=== PATIENT | female | born 1940 | race Caucasian/White ===

== ENCOUNTER 2020-01-29 19:13 | Emergency (ER) | payer MEDICARE, SELFPAY ==
--- NOTE | ~2020-01-29 | CT_ITS ---
EXAMINATION: CT cervical spine wo con DATE: 01/29/2020 19:52 INDICATION: Status post fall. Neck pain. TECHNIQUE: Computed tomography (CT) of the cervical spine was performed without intravenous contrast. The dose-length product was 156 mGy-cm. Automated exposure control and iterative reconstruction tech nique were employed. COMPARISON: None FINDINGS: No acute fracture, subluxation or dislocation. Mild degenerative changes are present C4-5, C5-6 and C6-7. Odontoid process within normal limits. Lung apices are normal. No acute fracture, subl uxation or dislocation. There is multilevel facet and uncinate hypertrophy. No paraspinal soft tissue abnormality. Thyroid gland is unremarkable. No evidence for perched facet. IMPRESSION: 1. No acute abnormality of the cervical spine. 2: Mild-moderate cervical spondylosis. Reviewed, dictated and finalized at location A.
--- NOTE | ~2020-01-29 | CT_ITS ---
EXAMINATION: CT BRAIN W/O DATE: 01/29/2020 19:52 INDICATION: Status post fall. Headache. Trauma to the for head. TECHNIQUE: Computed tomography (CT) of the head was performed without intravenous contrast. The dose- length product was 605.33 mGy-cm. No The mA was adjusted according to patient size. Iterative reconst ruction technique was employed. COMPARISON: No prior studies for comparison. FINDINGS: Normal brain parenchymal volume for age. Normal monae-white differentiation. No acute intrac ranial hemorrhage, infarction, mass or mass effect. No ventriculomegaly or midline shift. Midline sagittal images demonstrate a normal corpus callosum, c raniovertebral junction and sella turcica. Basilar cisterns are patent. There is extensive mucosal thickening of the maxillary, ethmoid and left sphenoid sinus with mucoperi osteal reaction, consistent with chronic sinusitis. Mastoids are pneumatized. No depressed skull frac tures. IMPRESSION: 1. No acute intracranial abnormality. 2: Moderate chronic sinusitis. Reviewed, dictated and finalized at location A.
[2020-01-29 19:20] VITALS: BP 164/79; PULSE 93; RESP 17; TEMP 36.6; O2SAT 100
--- NOTE | 2020-01-29 20:35 | ED.FALL ---
HPI - Fall General Chief Complaint: Fall Stated Complaint: fell - head injury Time Seen by Provider: 01/29/20 20:27 Source: patient Mode of arrival: ambulatory Limitations: no limitations History of Present Illness HPI Narrative: This patient is 79 year old female who presents for evaluation of headache and neck pain s/p fall. Patient states she was walking when she stumbled and fell. She fell and hit her head on the grass. She has pain to posterior head and fore head. She denies dizziness, nausea, vomiting or fever. she also denies focal weakness, numbness or tingling. She takes aspirin 81 mg . Related Data Allergies Allergy/AdvReac Type Severity Reaction Status Date / Time levofloxacin Allergy Mild vomit Verified 01/29/20 20:26 acetaminophen Allergy Unknown Dizziness Unverified 01/29/20 20:26 hydrocodone Allergy Unknown Nausea and Unverified 01/29/20 20:26 Vomiting NSAIDS (Non-Steroidal AdvReac Severe HIVES Verified 01/29/20 20:26 Anti-Inflamma Review of Systems Review of Systems: All systems reviewed & are unremarkable except as noted in HPI and below Constitutional: Constitutional: Denies chills and Denies fever(s) Cardiovascular: Cardiovascular: Denies chest pain Gastrointestinal: Gastrointestinal: Denies abdominal pain Musculoskeletal: Musculoskeletal: Denies myalgias Neurologic: Denies vertigo, Denies dizziness, Reports headache(s), Denies focal weakness and Denies numbness PMF Past Medical History Medical History (Updated 01/30/20 @ 00:00 by Lianet Bland) Hypertension Surgical History Surgical History (Updated 01/29/20 @ 20:36 by Oxana Leo MD) H/O mastectomy H/O: hysterectomy Social History Social History Gender identity (if verbalized by the patient): Female Exam Const: General: alert Orientation/consciousness: patient oriented x3 HENMT: Head: normocephalic and atraumatic Face and sinus: face symmetric Throat: posterior oropharynx normal Eyes: Pupils: Equal, round and reactive pupils present EOM: EOMs intact bilaterally Resp: Effort & Inspection: normal respiratory effort Skin: General skin exam: normal color Neuro: General: patient oriented x3, moves all extremities and CN's II-XI intact bilaterally Extrem: General: normal to inspection Course Reevaluation(s) Reevaluation #1: I Discussed with patient CT results. She reports she has history of chronic sinusitis. I discussed treatment with tylenol and muscle relaxer. She will follow up with PCP. Date: 01/29/20 Time: 20:41 Vital Signs Vital signs: Vital Signs Temperature 97.9 F 01/29/20 19:20 Pulse Rate 93 01/29/20 19:20 Respiratory Rate 17 01/29/20 19:20 Blood Pressure 164/79 H 01/29/20 19:20 Pulse Oximetry 100 01/29/20 19:20 Temperature 97.9 F 01/29/20 19:20 Pulse Rate 87 01/29/20 21:03 Respiratory Rate 20 01/29/20 21:03 Blood Pressure 165/96 H 01/29/20 21:03 Pulse Oximetry 97 01/29/20 21:03 MDM - Fall Imaging Data Radiologist's impression: ITS Impressions Head CT 01/29/20 19:59 IMPRESSION: 1. No acute intracranial abnormality. 2: Moderate chronic sinusitis. Cervical Spine CT 01/29/20 20:02 IMPRESSION: 1. No acute abnormality of the cervical spine. 2: Mild-moderate cervical spondylosis. Discharge Plan Discharge Clinical Impression: CHI (closed head injury), Acute cervical myofascial strain Patient Disposition: Home, Self-Care Condition: Stable Instructions: Cervical Strain (ED), Head Injury (ED) Additional Instructions: Try using ice pain or heating pad to reduce your pain. Follow up with your primary care physician if your pain does not improve. Prescriptions: New cyclobenzaprine 5 mg tablet 5 mg PO TID PRN (Reason: muscle spasm) Qty: 10 RF: 0 Follow-up/Referrals: Italo Medina MD [Physician] - PHYSICIAN,STONEWORK TRACER [Primary Care Provider] - Discharge Date/Time: 01/29/20 21:18
[2020-01-29] MEDS: ACETAMINOPHEN 500 MG TABLET 1000 MG PO (20:58)
[2020-01-29] MEDS: CYCLOBENZAPRINE HCL 5 MG TABLET PO (20:58)
[2020-01-29 21:03] VITALS: BP 165/96; PULSE 87; RESP 20; O2SAT 97
== END 2020-01-29 21:18 | disposition home or self-care (01) ==
LOC: ANHED 21:06
PROVIDERS: Emergency Provider General Practice
DX: S09.90XA Unspecified injury of head, initial encounter (principal); S16.1XXA Strain of muscle, fascia and tendon at neck level, initial encounter; I10 Essential (primary) hypertension; Z90.10 Acquired absence of unspecified breast and nipple; J32.9 Chronic sinusitis, unspecified; M47.812 Spondylosis without myelopathy or radiculopathy, cervical region; Z79.82 Long term (current) use of aspirin; W01.0XXA Fall on same level from slipping, tripping and stumbling without subsequent striking against object, initial encounter
CPT/HCPCS: 70450; 72125; 99284; A9270; L0140

== ENCOUNTER 2021-07-30 10:48 | Observation (INO) | payer MEDICARE, SELFPAY ==
[2021-07-30] VITALS (12 sets, daily range): BP systolic 134–172; BP diastolic 66–128; PULSE 62–76; RESP 14–18; TEMP 36.3–36.7; O2SAT 96–100; BMI 29.3
--- NOTE | ~2021-07-30 | CT_ITS ---
EXAMINATION: CT brain wo con DATE: 07/30/2021 11:41 INDICATION: Vertigo TECHNIQUE: Computed tomography (CT) of the head was performed without intravenous contrast. The dose- length product was 605.33 mGy-cm. Automated exposure control and iterative reconstruction technique w ere employed. COMPARISON: CT dated 01/29/2020 FINDINGS: Brain parenchymal volume is normal for age. No acute intracranial hemorrhage, infarction, m ass or mass effect. No ventriculomegaly or midline shift. Basilar cisterns are patent. There are scat tered mild periventricular and subcortical white matter changes, most likely related to small vessel ischemic disease (microangiopathy). There is pansinusitis with mucoperiosteal reaction, consistent wi th chronic sinus disease. Mastoids are pneumatized. No depressed skull fractures. No ventriculomegaly or midline shift. Basilar cisterns are patent. IMPRESSION: 1. No acute intracranial abnormality. 2: Chronic sinusitis. Reviewed, dictated and finalized at location A. [employer]SEM[employer] K[employer]
--- NOTE | ~2021-07-30 | XR_ITS ---
EXAMINATION: XR chest 1V 07/30/2021 11:43 INDICATION: Dizziness and nausea PROCEDURE: 2 view chest COMPARISON: 01/13/2014 FINDINGS: The lungs are clear. There are surgical changes consistent with left axillary node dissecti on. The cardiomediastinal silhouette is within normal limits. There are no pleural effusions. There is no pneumothorax suspected. IMPRESSION: 1: NO ACUTE CARDIOPULMONARY DISEASE. Reviewed, dictated and finalized at location A. ROOM INTERN
--- NOTE | ~2021-07-30 | MR_ITS ---
EXAMINATION: MR brain/brain stem wo/w con DATE: 07/30/2021 17:56 INDICATION: Vertigo. TECHNIQUE: Magnetic resonance imaging (MRI) of the brain and brainstem was performed without and with 15 mL MultiHance intravenous contrast. Sequences included sagittal and axial T1-weighted FSE, axial diffusion-weighted FS EPI, axial T2*-weighted GRE, axial T2-weighted FLAIR Propeller, and axial T2-we ighted Propeller. Postcontrast sequences included axial and coronal T1-weighted FSE. Apparent diffusi on coefficient (ADC) maps were created. COMPARISON: Head CT 07/30/2021 FINDINGS: There are scattered areas of nonspecific increased T2-weighted signal intensity in the cere bral white matter and edilia. There is no intracranial hemorrhage, acute infarction, or abnormal intrac ranial mass lesion. The ventricles are normal in size. There is extensive mucosal thickening in the p aranasal sinuses with thickening and sclerosis of the sinus verde by CT, consistent with chronic sinu sitis. There are likely changes of ocular lens replacement surgeries. The mastoid air cells are shaila l. IMPRESSION: 1. Moderate nonspecific cerebral white matter disease and pontine disease, which likely represents ch ronic small vessel ischemic disease. 2. Chronic sinusitis. Reviewed, dictated and finalized at location A. R WOOD CUTTER IMPRESSION: 1. Moderate nonspecific cerebral white matter disease and pontine disease, whic h likely represents chronic small vessel ischemic disease. 2. Chronic sinusitis.
--- NOTE | 2021-07-30 11:29 | ECG_ITS ---
Measurements Intervals [place] Rate: 60 P: IA: 0 QRS: -10 QRSD: 83 T: -9 QT: 447 QTc: 450 Interpretive Statements SINUS OR ECTOPIC ATRIAL RHYTHM WITH SINUS ARRHYTHMIA VOLTAGE CRITERIA FOR LVH BORDERLINE ST-T WAVE ABNORMALITY- DIFFUSE LEADS BASELINE ARTIFACT- AVR, AVF, V4 BORDERLINE ECG Electronically Signed On 07-30-2021 12:18:43 LINUX UNIX ADMINISTRATOR by Sean Donald D.O.
[2021-07-30 12:04] LABS: Basophils Percent Auto 0.5 % (0.2-1.2); Eosinophils Absolute Auto 0.1 K/mm3 (0-0.3); Eosinophils Percent Auto 1.7 % (0-4.4); Hematocrit 41.8 % (37.0-47.0); Immature Granulocyte Absolute 0.03 K/mm3 (0.00-0.031); Immature Granulocyte Percent A 0.4 % (0-0.5); Lymphocytes Absolute Auto 1.28 K/mm3 (0.9-3.2); Lymphocytes Percent Auto 15.6 % (18.3-44.2); Mean Corpuscular HGB Conc 33.5 g/dl (32-36); Mean Corpuscular Hemoglobin 30.8 pg (26-34); Mean Corpuscular Volume 92.1 fl (80-100); Mean Platelet Volume 9.8 fl (7.4-10.4); Monocytes Absolute Auto 0.4 K/mm3 (0.1-0.6); Monocytes Percent Auto 5.4 % (2.6-8.5); Neutrophils Absolute Auto 6.3 K/mm3 (1.3-6.7); Neutrophils Percent Auto 76.4 % (45.5-73.1); Platelet Count Result 147 k/mm3 (150-375); Red Blood Count 4.54 M/mm3 (4.2-5.4); Red Cell Distribution Width 13.9 % (11.5-14.5); White Blood Count 8.2 K/mm3 (4.5-10.0)
[2021-07-30] MEDS: diazePAM (*CRX) 5 MG TABLET PO (12:05)
[2021-07-30] MEDS: MECLIZINE HCL 25 MG TABLET PO ×3 (12:06→23:59)
[2021-07-30] MEDS: ONDANSETRON INJ 4 MG/2 ML VIAL 8 MG IV PUSH (12:06)
[2021-07-30 12:14] LABS: Add Urine Microscopic? YES; Appearance Urine Clear (Clear); Bacteria Urine Trace /hpf; Bilirubin Urine Negative (Negative); Blood Urine Negative (Negative); Color Urine Yellow (Yellow); Glucose Urine UA Negative (Negative); Ketones Urine Negative (Negative); Leukocyte Esterase Ur Negative LEU/UL (Negative); Mucus Urine Rare /lpf; Nitrate Urine Positive (Negative); Protein Urine Negative (Negative); RBC Urine 0-2 /hpf (0-2); Specific Grav Ur 1.015 (1.001-1.035); Squamous Epithelial Cell Urine Rare /hpf (Few); Urobilinogen Urine Negative mg/dL (<2.0); WBC Urine 0-3 /hpf
[2021-07-30 12:18] LABS: Prothrombin Time 12.8 Seconds (11.1-14.7)
[2021-07-30 12:19] LABS: Partial Thromboplastin Time 29.1 SECONDS (22.3-36.8)
[2021-07-30 12:27] LABS: Alanine Aminotransferase 19 U/L (4-35); Albumin Level 4.1 g/dL (3.5-5.1); Alkaline Phosphatase 60 U/L (38-126); Anion Gap 8 mmol/L (8-16); Aspartate Amino Transferase 24 U/L (14-36); Bilirubin,Total 0.7 mg/dL (0.2-1.3); Blood Urea Nitrogen 12 mg/dL (7-17); Carbon Dioxide 24 mmol/L (22-30); Chloride 104 mmol/L (98-107); Estimated CRCL calculation 64 ml/min; Estimated Glomerular Filt Rate > 60; Glucose 123 mg/dL (65-110); Potassium 3.2 mmol/L (3.4-5.0); Sodium 136 mmol/L (137-145)
--- NOTE | 2021-07-30 12:36 | ED.DIZZY ---
HPI - Dizziness General Chief Complaint: Dizziness Stated Complaint: dizzy Time Seen by Provider: 07/30/21 10:56 Source: patient and EMS Mode of arrival: EMS Limitations: no limitations History of Present Illness HPI Narrative: Patient is 81 years old white female, lives alone, came to the emergency room by ambulance because of dizziness. Patient was trying to get out of bed this morning, suddenly everything was spinning, associated with severe nausea, patient could not move. Patient denies focal numbness or weakness. Patient had similar symptoms 2 years ago but today is worse. Discharge Patient did not take her medication this morning. After being laying down in bed for a while in the emergency room, started having left chest tightness. Patient stopped taking her aspirin 2 months ago. Patient denies any fever, chills, shortness of breath, headache, abdominal pain. Related Data Allergies Allergy/AdvReac Type Severity Reaction Status Date / Time levofloxacin Allergy Mild vomit Verified 01/29/20 20:26 acetaminophen Allergy Unknown Dizziness Unverified 01/29/20 20:26 hydrocodone Allergy Unknown Nausea and Unverified 01/29/20 20:26 Vomiting NSAIDS (Non-Steroidal AdvReac Severe HIVES Verified 01/29/20 20:26 Anti-Inflamma Review of Systems Review of Systems: CONSTITUTIONAL: Denies fever, chills, or sweats. EYES: Denies visual changes, redness, or discharge. ENT: Denies rhinorrhea, congestion, sore throat, or otalgia. CARDIOVASCULAR: Denies chest pain, palpitations, or edema. RESPIRATORY: Denies cough or dyspnea. GASTROINTESTINAL: Denies abdominal pain, nausea, vomiting, or diarrhea. GENITOURINARY: Denies dysuria or hematuria. SKIN: Denies rash or itching. MUSCULOSKELETAL: Denies back pain, joint pain, or myalgia. NEUROLOGIC: Denies headache, numbness, or weakness. PSYCHIATRIC: Denies anxiety or depression. [facility] Past Medical History Medical History Hypertension Surgical History Surgical History H/O mastectomy H/O: hysterectomy Social History Social History Gender identity (if verbalized by the patient): Female Exam Narrative: General appearance: Well-developed, well-nourished, looks ill, laying in bed, unable to move because still feeling dizzy, patient son is at the bedside Skin: Normal color Head: Normocephalic, nontraumatic Eyes: Clear conjunctiva ENT: Oropharynx normal, ears normal, nose normal Neck: Supple, nontender Chest and respiratory: Airway patent, no respiratory distress, no accessory muscle use Heart: Regular rate/rhythm Abdomen: Soft, nontender, no organomegaly, quiet bowel sounds Vascular: Normal peripheral pulses, normal capillary refill. Musculoskeletal: Normal range of motion, nontender back Neurologic: Alert and oriented ?3, [employer] is normal as tested, no gross motor deficit Course Course Emergency Course: Unchanged. Patient still nauseated with dizzy feeling, did not get better on Valium, Zofran and Antivert Vital Signs Vital signs: Vital Signs Temperature 36.6 C 07/30/21 10:53 Pulse Rate 67 07/30/21 10:53 Respiratory Rate 18 07/30/21 10:53 Blood Pressure 158/73 H 07/30/21 10:53 Pulse Oximetry 100 07/30/21 10:53 Temperature 36.4 C L 07/30/21 14:30 Pulse Rate 66 07/30/21 15:33 Respiratory Rate 14 07/30/21 15:33 Blood Pressure 142/77 H 07/30/21 15:33 Pulse Oximetry 99 07/30/21 15:33 MDM - Dizziness Lab Data Result diagrams: 07/30/21 11:56 07/30/21 11:56 Labs: Lab Results 07/30/21
[2021-07-30 12:38] LABS: Troponin I < 0.012 ng/mL (0.000-0.034)
--- NOTE | 2021-07-30 12:44 | PC.NURSE ---
pt reports dizziness has slightly improved when moving head
--- NOTE | 2021-07-30 16:23 | ADMGEN ---
This patient, Vanessa Guy, was admitted to [facility] Surg Room 311-01. Patient/family oriented to hospital policies and general routines including ID bracelet, bed and alarms, visiting hours, pain management, procedures, bathroom and other care routines, personal items, smoking policy, room service/diet, and visiting hours. Information on how to activate the Rapid Response Team has been discussed. Patient/Family are encouraged to report perceived risks to care and to ask questions if they do not understand what they are told or what they should do.
--- NOTE | 2021-07-30 16:45 | PM.IMHP ---
H&P: HPI History of Present Illness Date/Time: Patient was placed observation status for expected length of stay less than 23 hours for management, will plan to re-evaluate tomorrow for improvement. 07/30/21 16:45 Chief Complaint: Vertigo Narrative: Ms. Guy is a 81-year-old female who presented emergency room with complaints of vertigo. Patient states that she got out of bed approximately 9:00 a.m. this morning and when she went to stand up the room began spinning around her. Patient states she has had episodes of vertigo in the past approximately 2-3 years ago, but not quite this bad. Patient states she was extremely nauseated, but had no vomiting. Patient denies any recent falls or trauma to her head. Patient denies any facial droop, slurring his speech, numbness, or tingling. Patient denies any weakness, numbness, or tingling of extremities. Patient states she has a known history of hypertension, depression, and breast cancer status post mastectomy. Patient denies any chest pain, lightheadedness, shortness of breath, orthopnea, PND, palpitations, syncope, or near syncopal episodes. Upon evaluation in emergency room patient continued to complain of vertigo after receiving Valium, Zofran, and meclizine. Patient states that she is unable to tolerate sitting or standing because the room was spinning around her. Review of Systems Review of Systems: A 12 point review of systems was completed patient all pertinent positive and negative per HPI the remainder are unremarkable. [facility] Past Medical History Medical History (Updated 07/30/21 @ 16:55 by Myesha Sharp APRN) Breast cancer Hypertension Surgical History Surgical History (Updated 07/30/21 @ 16:51 by Myesha Sharp APRN) H/O mastectomy Left mastectomy History of cataract removal with insertion of prosthetic lens History of partial hysterectomy Social History Social History Smoking status: Never smoker Alcohol intake: never Gender identity (if verbalized by the patient): Female Spiritual care concerns: No Meds Home Medications and Allergies Home Medications Medication Instructions Recorded Confirmed Type cyclobenzaprine 5 mg PO TID PRN #10 tablet 01/29/20 Rx aspirin [Adult Aspirin] 81 mg PO DAILY 07/30/21 07/30/21 History escitalopram oxalate 10 mg PO DAILY 07/30/21 07/30/21 History fluticasone propionate 1 spray INTRANASAL BID 07/30/21 07/30/21 History hydrochlorothiazide 12.5 mg PO DAILY 07/30/21 07/30/21 History metoprolol tartrate 25 mg PO BID 07/30/21 07/30/21 History omega-3 fatty acids [Fish Oil] 500 mg PO DAILY 07/30/21 07/30/21 History Allergies Allergy/AdvReac Type Severity Reaction Status Date / Time levofloxacin Allergy Mild vomit Verified 07/30/21 16:56 acetaminophen Allergy Unknown Dizziness Verified 07/30/21 16:56 hydrocodone Allergy Unknown Nausea and Verified 07/30/21 16:56 Vomiting NSAIDS (Non-Steroidal AdvReac Severe HIVES Verified 07/30/21 16:56 Anti-Inflamma Vital Signs Vital Signs - 24 hr 07/30/21 10:53 07/30/21 11:41 07/30/21 11:42 Temperature 36.6 C Pulse Rate 67 69 72 Respiratory Rate 18 Blood Pressure 158/73 H 158/73 H 172/128 H Pulse Oximetry 100 07/30/21 12:17 07/30/21 13:19 07/30/21 14:30 Temperature 36.6 C 36.3 C L 36.4 C L Pulse Rate 62 73 68 Respiratory Rate 16 16 16 Blood Pressure 153/77 H 137/85 134/72 Pulse Oximetry 96 97 07/30/21 15:33 07/30/21 16:18 Temperature 36.4 C L Pulse Rate 66 68 Respiratory Rate 14 18 Blood Pressure 142/77 H 147/66 H Pulse Oximetry 99 100 Exam Narrative: Constitutional: Patient is well-nourished in no acute distress. Patient is alert oriented x3 HEENT: Moist mucous membranes. No scleral icterus. No lymphadenopathy. No nystagmus noted Neck: No carotid bruits noted no JVD noted Lungs: Lung sounds are clear to auscultation bilaterally. No accessory muscle use. No rhon
[2021-07-30] MEDS: POTASSIUM CHLORIDE 20 MEQ PACKET (FOR LIQUID) 40 MEQ PO (18:47)
[2021-07-30] MEDS: METOPROLOL TARTRATE 25 MG TABLET PO (20:31)
[2021-07-30] MEDS: FLUTICASONE PROPIONATE 0.05% NA SPR 16 GM BTL (*BKC) 1 SPRAY NASAL (20:32)
[2021-07-31] VITALS (9 sets, daily range): BP systolic 136–154; BP diastolic 61–86; PULSE 60–77; RESP 14–18; TEMP 35.8–37.1; O2SAT 94–98
[2021-07-31] MEDS: MECLIZINE HCL 25 MG TABLET PO ×2 (05:06→11:46)
[2021-07-31] MEDS: FLUTICASONE PROPIONATE 0.05% NA SPR 16 GM BTL (*BKC) 1 SPRAY NASAL (08:36)
[2021-07-31] MEDS: ENOXAPARIN 40 MG/0.4 ML SYRINGE SUB-Q (08:36)
[2021-07-31] MEDS: METOPROLOL TARTRATE 25 MG TABLET PO (08:36)
[2021-07-31] MEDS: ASPIRIN 81 MG CHEWABLE TABLET PO (08:37)
[2021-07-31] MEDS: ESCITALOPRAM OXALATE 10 MG TABLET PO (08:37)
[2021-07-31] MEDS: hydroCHLOROthiazide 12.5 MG CAPSULE PO (08:37)
[2021-07-31] MEDS: OMEGA 3 POLYUNSAT FATTY ACIDS 1 GM CAP PO (10:17)
--- NOTE | 2021-07-31 12:48 | WPDNEURCNPN ---
Assessment and Plan Additional Plan vertigo with negative MRI of the brain nonfocal neurological examination at this particular time can be discharged with Antivert and followed in the office Consult date: 07/31/21 HPI: Vanessa Guy is a 81 year old femaleAdmitted through the emergency room placed on observation status for expected length of stay [id number] for management as per the information available she got out of bed approximately 9:00 a.m. in the morning when she stood up the room began spinning around her and she had an episode of vertigo she has had the same episode about 2 to 3 years ago but not quite this bad she was nauseated though she did not throw up she gave no history of recent fall trauma to the head and she gave no history of any other associated neurological deficit such as facial droop slurred speech numbness and tingling weakness of upper and lower extremities though she does have history of hypertension, depression, and carcinoma of the breast for which she has undergone mastectomy on initial evaluation in the emergency room she complained of vertigo received Zofran meclizine and Valium, she is not a smoker not a drinker and takes only aspirin 81 mg daily with cyclobenzaprine 5 mg 3 times a day p.r.n. E site a low prime 10 mg daily so thiazide 12.5 mg daily metoprolol 25 mg b.i.d. and initial vital signs were stable so as the CBC and electrolytes were with potassium 3.2 sodium 136 otherwise normal hepatic enzymes normal she was admitted to the hospital for observation only with a diagnosis of vertigo, radiological investigation up until now include the MRI which cerebral white matter disease in pontine disease representing chronic small vessel ischemic disease and chronic sinusitis, negative chest x-ray and moderate cervical spondylosis on CT scan of the cervical spine Review of Systems Review of Systems: All systems reviewed & are unremarkable except as noted in HPI and below PMFSH Past Medical History Medical History Breast cancer Hypertension Surgical History Surgical History H/O mastectomy Left mastectomy History of cataract removal with insertion of prosthetic lens History of partial hysterectomy Social History Social History Smoking status: Never smoker Alcohol intake: never Gender identity (if verbalized by the patient): Female Spiritual care concerns: No Meds Home Medications and Allergies Home Medications Medication Instructions Recorded Confirmed Type cyclobenzaprine 5 mg PO TID PRN #10 tablet 01/29/20 07/30/21 Rx aspirin [Adult Aspirin] 81 mg PO DAILY 07/30/21 07/30/21 History escitalopram oxalate 10 mg PO DAILY 07/30/21 07/30/21 History fluticasone propionate 1 spray INTRANASAL BID 07/30/21 07/30/21 History hydrochlorothiazide 12.5 mg PO DAILY 07/30/21 07/30/21 History metoprolol tartrate 25 mg PO BID 07/30/21 07/30/21 History omega-3 fatty acids [Fish Oil] 500 mg PO DAILY 07/30/21 07/30/21 History Allergies Allergy/AdvReac Type Severity Reaction Status Date / Time levofloxacin Allergy Mild vomit Verified 07/30/21 16:56 acetaminophen Allergy Unknown Dizziness Verified 07/30/21 16:56 hydrocodone Allergy Unknown Nausea and Verified 07/30/21 16:56 Vomiting NSAIDS (Non-Steroidal AdvReac Severe HIVES Verified 07/30/21 16:56 Anti-Inflamma Vital Signs Vital Signs - 24 hr 07/30/21 13:19 07/30/21 14:30 07/30/21 15:33 Temperature 36.3 C L 36.4 C L Pulse Rate 73 68 66 Respiratory Rate 16 16 14 Blood Pressure 137/85 134/72 142/77 H Pulse Oximetry 97 99 07/30/21 16:18 07/30/21 18:45 07/30/21 22:27 Temperature 36.4 C L 36.6 C Pulse Rate 68 73 73 Respiratory Rate 18 18 Blood Pressure 147/66 H 156/90 H Pulse Oximetry 100 99 07/30/21 22:29 07/30/21 22:30 07/31/21 00:09 Temperature 36.7 C 36.7 C 37.1 C Pulse
--- NOTE | 2021-07-31 13:01 | PM.DS ---
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 placed patient on meclizine routinely and have p.r.n. 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 (2) Hypertension: Code(s): I10 - Essential (primary) hypertension Status: Acute Assessment and Plan: Will resume patient's home medications and adjust accordingly for optimal blood pressure control. (3) Hypokalemia: Code(s): E87.6 - Hypokalemia Status: Acute Assessment and Plan: Will give patient oral supplementation of potassium and continue to monitor potassium levels. DS: Summary Hospital Course Reason for hospitalization: Vertigo/dizziness Hospital Course: Patient is a 81-year-old female with a past medical history of breast cancer, diabetes mellitus type 2, and hypertension. Patient presented to the emergency due to complaints of vertigo. Patient was unable to get out of bed yesterday morning at 9:00 a.m.. Reportedly she was unable to stand up without the room spinning around her. She has had episodes of vertigo in the past, but not this bad. Patient reports that she is extremely nauseated, Nova episodes of emesis. Patient denies recent falls or trauma to her head. Patient denies any facial droop, slurring of the speech numbness or tingling. She denies any chest pain or shortness of breath. In the emergency room she did receive Valium, Zofran and meclizine. Patient reports that she was able to talk right sitting up in the dizziness was mildly improved. She was admitted under observation for hospitalist services. Neurology was consulted for further evaluation after MRI read moderate nonspecific cerebral white matter disease and pontine disease, most likely represents chronic small vessel ischemic disease. He suggested starting the patient on Plavix and continue her aspirin as well as meclizine and follow up within 6-8 weeks. Discussed with the patient for follow-up with her primary care physician and physical therapy. All questions answered at the time of discharge. Status at Discharge Cognitive/behavioral status at discharge: Alert and oriented x4 Functional status at discharge: uses cane/walker Overall status at discharge: patient is back to baseline Time Spent with Patient Time attestation: Total time spent providing and/or coordinating discharge services: Time spent: Less than 30 minutes Exam Narrative: Constitutional: Patient is well-nourished in no acute distress. Patient is alert oriented x3 HEENT: Moist mucous membranes. No scleral icterus. No lymphadenopathy. No nystagmus noted Neck: No carotid bruits noted no JVD noted Lungs: Lung sounds are clear to auscultation bilaterally. No accessory muscle use. No rhonchi, rales, or wheezes noted. Cardiovascular: Apical pulse is regular rate and rhythm. S1-S2 noted, no S3 or S4 noted. No gallops, murmurs, or rubs noted. Abdomen: Soft, round, and nontender. No palpable masses. Extremities: No edema. Nontender. Skin: No rashes or lesions. Warm and dry. Skin is intact. Neurological: No focal neurological deficits. Cranial nerves II-XII grossly intact. Psychiatric: Cooperative, appropriate mood, and affect Discharge Plan Discharge Attending physician on discharge: Santos Manning Consulting providers: Maicol Buenrostro Discharging Clinician: Lianet Burdick Patient Disposition: Home, Self-Care Activity: no preference Diet: as tolerated
== END 2021-07-31 16:50 | disposition home or self-care (01) ==
LOC: ANHED 15:03 → ANH3MEDSUR 07-31 11:34
PROVIDERS: Admitting Provider Internal Medicine; Emergency Provider Emergency Medicine; PCP Family Medicine; Visit Provider Nurse Practitioner Family
DX: R42 Dizziness and giddiness (principal); G93.89 Other specified disorders of brain; R07.9 Chest pain, unspecified; I10 Essential (primary) hypertension; E87.6 Hypokalemia; E11.9 Type 2 diabetes mellitus without complications; R11.0 Nausea; Z85.3 Personal history of malignant neoplasm of breast; Z90.12 Acquired absence of left breast and nipple; Z79.82 Long term (current) use of aspirin; Z79.899 Other long term (current) drug therapy
CPT/HCPCS: 36415; 70450; 70553; 71045; 80053; 81001; 84484; 85025; 85610; 85730; 93005; 96372; 96374; 97161; 99285; A9270; A9577; G0378; J1650; J2405

== ENCOUNTER 2021-09-20 08:30 | Outpatient (RCR) | payer MEDICARE, SELFPAY ==
--- NOTE | 2021-08-15 13:49 | PTOPEVAL ---
PHYSICAL THERAPY EVALUATION AND PLAN OF CARE 08-15-21 Thank you for referring Vanessa Guy to [facility] for the diagnosis of vertigo/vestibular rehab.? She is scheduled to be seen for therapy? 0-2 x/week for 5 weeks, depending upon the severity of her symptoms. Please review, sign, date and return this plan of care CHELSI. I agree with and certify that the following plan of care is medically necessary. Referring Physician Date Attending Provider: Dr. Jayy Davison Document 08/15/21 12:30 BRANDY (Rec: 08/15/21 13:48 BRANDY [id number]) Past Medical History Source of Past Medical History Recalled from Previous Visit, Confirmed with Patient/Family Neurological History Hx Neurological Disorders No Significant History Cardiovascular History Hx Hypertension Yes: meds Respiratory History Hx Respiratory Disorders No Significant History Gastrointestinal History Hx Gastrointestinal Disorders No Significant History Genitourinary History Hx Urinary Tract Infection Yes Musculoskeletal History Hx Other Musculoskeletal Disorders Yes: intermittent neck pain; Hematological History Hx Hematological Disorders No Significant History Endocrine History Hx Endocrine Disorders No Significant History HEENT History Hx Cataracts Yes: B cataract surgery; use reading glasses only Hx Sinus Problems Yes: seasonal allergies-- Flonase PRN Hx Other HEENT Disorders Yes: surg 2009- cleaned out sinus';to have polpy surg-not scheduled yet Integumentary History Hx Skin Disorders No Significant History Reproductive History Hx Other Reproductive Disorders Yes: L breast mastectomy, no radiation, no chemo; Psychosocial History Hx Anxiety Yes Pain History History of Any Previous or Ongoing No Significant History Instance of Pain Anesthesia History Hx Anesthesia Reactions No Significant History Evaluation Information Problem Diagnosis vertigo/ vestibular therapy Onset Jul Subjective Information hospitalized 2 days, due to Query Text:As Reported By Patient/ dizziness Family Prior Level of Function Activity Level (Last 3 Months) Activity of Daily Living Ability Independent Indoor/Home Mobility Independent Community Mobility Independent Stairs Ability Independent Functional Cognition (Planning, Shopping Independent , Taking Medications) Cooking Yes Cleaning Yes Laundry Yes Shopping Yes Driving Yes Home Setting H
--- NOTE | 2021-09-07 11:56 | PCPTNOTE ---
Patient called & cancelled scheduled appointment this date due to not feeling well.
--- NOTE | 2021-09-20 09:06 | PTOPEVAL ---
PHYSICAL THERAPY DISCHARGE 09-20-21 Refer to the clinical summary below, for her status today, compared to the initial evaluation. The goals were achieved and she will be discharged from PT services at this time. Thank you for referring Vanessa Guy to [facility] for vestibular therapy/rehab.? Please review, sign, date and return this plan of care CHELSI. I agree with and certify that the following plan of care is medically necessary. Referring Physician Date Attending Provider: Dr. Jayy Davison Subjective Information Vanessa reports: feel better; Query Text:As Reported By Patient/ had one dizzy spell in the Family past week- 3 days ago, when got up too fast from sitting to standing; once stood up, went away, did not last; doing all the exercises at home that you gave me, they are getting easier; able to stand with eyes closed for 2-3 minutes, set the timer when did it; no longer taking meclazine; have watery eyes and sinus congestion; take claritin for allergies; to see ENT next week; no problems with watching great grand son or doing vacuuming; ready to be finished with therapy Dizziness Handicap Inventory Standardized Test Scores (Number 0-100) 4 Vestibular Testing Comments supine > sit and sit> stand transfer no s/s; 360' turn to R and L 1x- with slight upsteady but no loss balance; march in place eyes open and closed 10x- stepped forward with eyes closed and slightly unsteady; tandem stand with lead R and Lead L ~ 20 sec- unsteady; balance activities: 20': heel- toe walking, marching, walk with head turns R/L and up/ down; sweet pickled fruit maker from floor- simulate sweet pickled fruit maker grand child-- instructed to widen base of support and stagger stand-- performed without loss of balance and no s/s; PT Clinical Summary Vanessa has received 5 PT sessions for the diagnosis
== END 2021-09-20 16:21 | disposition home or self-care (01) ==
LOC: ANHPT 08:30
DX: R42 Dizziness and giddiness (principal)
CPT/HCPCS: 97162; 97530

== ENCOUNTER 2022-10-27 22:56 | Emergency (ER) | payer MEDICARE, SELFPAY ==
--- NOTE | ~2022-10-27 | XR_ITS ---
EXAMINATION: XR knee RT min 4V DATE: 10/28/2022 01:18 INDICATION: Right knee pain. TECHNIQUE: 4 views of right knee were obtained. COMPARISON: None. FINDINGS: Bone alignment is normal. No fracture. There is mild osteoarthritis of medial and patellofe moral compartments. There is a small knee joint effusion. IMPRESSION: 1. Mild right knee osteoarthritis. 2. Small right knee joint effusion. Reviewed, dictated and finalized at location A.
[2022-10-27 23:06] VITALS: BP 150/81; PULSE 87; RESP 20; TEMP 36.1; O2SAT 99
[2022-10-27 23:26] VITALS: BP 169/84; PULSE 79; RESP 26; TEMP 37; O2SAT 98
--- NOTE | 2022-10-27 23:26 | PC.NURSE ---
Patient states she took two Tylenol around 1500 for pain.
--- NOTE | 2022-10-28 00:27 | ED.GENADULT ---
HPI - General Adult General Chief complaint: Extremity Injury, Lower Stated complaint: right knee pain Time Seen by Provider: 10/27/22 23:28 History of Present Illness HPI narrative: 82-year-old female present Emergency Department for evaluation of right knee pain. Patient does have some increased pain of the right knee and swelling of the right lower extremity. Patient denies any falls or injury. Patient has no prior history of PE or DVT. Patient does take aspirin and Plavix Related Data Home Medications Medication Instructions Recorded Confirmed aspirin 81 mg tablet 81 mg PO DAILY 07/30/21 09/24/21 escitalopram oxalate 10 mg tablet 10 mg PO DAILY 07/30/21 09/24/21 fluticasone propionate 50 1 spray intranasal BID 07/30/21 09/24/21 mcg/actuation nasal spray,suspension hydrochlorothiazide 25 mg tablet 12.5 mg PO DAILY 07/30/21 09/24/21 metoprolol tartrate 25 mg tablet 25 mg PO BID 07/30/21 09/24/21 omega-3 fatty acids 500 mg PO DAILY 07/30/21 09/24/21 Allergies Allergy/AdvReac Type Severity Reaction Status Date / Time levofloxacin Allergy Mild vomit Verified 09/24/21 15:21 acetaminophen Allergy Unknown Dizziness Verified 09/24/21 15:21 hydrocodone Allergy Unknown Nausea and Verified 09/24/21 15:21 Vomiting ibuprofen Allergy Hives Verified 10/27/22 23:25 NSAIDS (Non-Steroidal AdvReac Severe HIVES Verified 09/24/21 15:21 Anti-Inflamma Review of Systems Review of Systems: All systems reviewed & are unremarkable except as noted in HPI and below PMFSH Past Medical History Medical History Breast cancer Hypertension Surgical History Surgical History H/O mastectomy Left mastectomy History of cataract removal with insertion of prosthetic lens History of partial hysterectomy Social History Social History Smoking status: Never smoker Alcohol intake: never Gender identity (if verbalized by the patient): Female Spiritual care concerns: No Exam Narrative: APPEARANCE: Well appearing, no pain, no distress, well-nourished. HEAD: normocephalic, atraumatic. EYES: PERRLA/EOMI, conjunctivae clear. NOSE: Normal no drainage RESPIRATORY: Airway patent, respirations nonlabored. Clear to auscultation bilaterally, no rales, rhonchi, wheezing. CARDIOVASCULAR: Regular rate and rhythm without murmurs rubs or gallops. ABDOMINAL: Soft, nontender, nondistended, normal bowel sounds MUSCULOSKELETAL: Tenderness to right knee and tenderness to right calf. Patient does have some edema of the right lower extremity. Right leg is neurovascular intact NEURO: Alert. Cranial nerves II through XII intact. SKIN: Warm, dry. Normal Color Course Course Emergency Course: 82-year-old female with right knee pain and right lower extremity swelling. X-ray was negative for acute fracture or dislocation. Patient does have some calf tenderness and there is some clinical concern for a DVT. Patient did have elevated D-dimer. Patient was treated with a dose of Lovenox in the ED and an ultrasound was ordered for the morning. Patient was provided a knee immobilizer and was encouraged to use a walker for limited weightbearing. Patient and family were updated on the results of the work-up, reason for treating with Lovenox and on the importance of having the ultrasound and close follow-up with the patient's primary care physician. All questions and concerns were addressed. Patient states that they are able to return in the morning to have the patient ultrasound. Vital Signs Vital signs: Vital Signs Temperature 97.0 F L 10/27/22 23:06 Pulse Rate 87 10/27/22 23:06 Respiratory Rate 20 10/27/22 23:06 Blood Pressure 150/81 H 10/27/22 23:06 Pulse Oximetry 99 10/27/22 23:06 Oxygen Delivery Room Air 10/27/22 23:06 Temperature 97.6 F 10/28/22 02:17 Pulse Rate
[2022-10-28 00:39] LABS: Alanine Aminotransferase 22 U/L (6-35); Albumin Level 4.3 g/dL (3.5-5.1); Alkaline Phosphatase 75 U/L (38-126); Anion Gap 6 mmol/L (8-16); Aspartate Amino Transferase 28 U/L (14-36); Bilirubin,Total 0.5 mg/dL (0.2-1.3); Blood Urea Nitrogen 19 mg/dL (7-17); Calcium 9.1 mg/dL (8.4-10.2); Carbon Dioxide 27 mmol/L (22-30); Chloride 107 mmol/L (98-107); Estimated Glomerular Filt Rate 60; Glucose 115 mg/dL (65-110); Potassium 3.5 mmol/L (3.4-5.0); Sodium 140 mmol/L (137-145)
[2022-10-28 00:44] LABS: Basophils Absolute Auto 0.1 K/mm3 (0.0-0.1); Basophils Percent Auto 0.7 % (0.2-1.2); Eosinophils Absolute Auto 0.3 K/mm3 (0-0.3); Eosinophils Percent Auto 4.2 % (0-4.4); Hematocrit 41.3 % (37.0-47.0); Hemoglobin 13.6 g/dL (12.0-15.0); Immature Granulocyte Absolute 0.01 K/mm3 (0.00-0.031); Immature Granulocyte Percent A 0.1 % (0-0.5); Lymphocytes Absolute Auto 2.28 K/mm3 (0.9-3.2); Lymphocytes Percent Auto 29.9 % (18.3-44.2); Mean Corpuscular HGB Conc 32.9 g/dl (32-36); Mean Corpuscular Hemoglobin 30.5 pg (26-34); Mean Corpuscular Volume 92.6 fl (80-100); Mean Platelet Volume 10.2 fl (7.4-10.4); Monocytes Absolute Auto 0.5 K/mm3 (0.1-0.6); Monocytes Percent Auto 6.8 % (2.6-8.5); Neutrophils Absolute Auto 4.5 K/mm3 (1.3-6.7); Neutrophils Percent Auto 58.3 % (45.5-73.1); Platelet Count Result 148 k/mm3 (150-375); Prothrombin Time 13.1 Seconds (11.1-14.7); Red Blood Count 4.46 M/mm3 (4.2-5.4); Red Cell Distribution Width 14.7 % (11.5-14.5); White Blood Count 7.6 K/mm3 (4.5-10.0)
[2022-10-28 00:45] LABS: Partial Thromboplastin Time 31.3 SECONDS (22.3-36.8)
[2022-10-28 01:22] VITALS: BP 141/79; PULSE 73; RESP 14; O2SAT 99
--- NOTE | 2022-10-28 01:31 | PC.NURSE ---
Patient stated she weighs 167 pounds and is 5'4
--- NOTE | 2022-10-28 01:38 | PC.NURSE ---
Patient stated her pain was still intense. Spoke with Dr. Peralta who advised to give Tramadol 50mg PO. Confirmed with pharmacy as well since hydrocodone allergy was flagged when putting Tramadol order in. Per Carroll in pharmacy Tramadol 50mg PO is ok to give to patient.
[2022-10-28] MEDS: traMADol HCL (*CRX) 50 MG TABLET PO (01:53)
[2022-10-28] MEDS: ENOXAPARIN 80 MG/0.8 ML SYRINGE 75 MG SUB-Q (01:53)
[2022-10-28 02:17] VITALS: BP 156/77; PULSE 66; RESP 14; TEMP 36.4; O2SAT 96
== END 2022-10-28 02:18 | disposition home or self-care (01) ==
PROVIDERS: Emergency Provider Emergency Medicine
DX: M25.561 Pain in right knee (principal); R22.41 Localized swelling, mass and lump, right lower limb; M79.661 Pain in right lower leg; I10 Essential (primary) hypertension; Z85.3 Personal history of malignant neoplasm of breast; Z79.82 Long term (current) use of aspirin; Z90.12 Acquired absence of left breast and nipple; Z98.49 Cataract extraction status, unspecified eye; Z96.1 Presence of intraocular lens; Z90.711 Acquired absence of uterus with remaining cervical stump; M17.11 Unilateral primary osteoarthritis, right knee
CPT/HCPCS: 36415; 73564; 80053; 85025; 85380; 85610; 85730; 96372; 99283; A9270; J1650

== ENCOUNTER 2022-10-29 13:57 | Outpatient (CLI) | payer MEDICARE, SELFPAY ==
--- NOTE | ~2022-10-29 | US_ITS ---
EXAMINATION: US venous doppler LE RT DATE: 10/29/2022 14:45 INDICATION: Right lower limb pain. TECHNIQUE: Grayscale ultrasound images without and with compression and Doppler ultrasound images of the right lower extremity veins were obtained. COMPARISON: None. FINDINGS: The visualized portions of right common femoral vein, profunda (deep) femoral vein, femoral vein, pop liteal vein, peroneal veins, posterior tibial veins, and greater saphenous vein outflow are patent. IMPRESSION: 1. No deep venous thrombosis. Reviewed, dictated and finalized at location L.
== END 2022-10-29 13:58 | disposition home or self-care (01) ==
DX: M79.604 Pain in right leg (principal)
CPT/HCPCS: 93971

== ENCOUNTER → 2023-03-07 10:35 | Outpatient (CLI) | payer MEDICARE, SELFPAY ==
--- NOTE | ~2023-03-07 | MR_ITS ---
MRI of the right knee Clinical history: Effusion, arthritis Technique: Coronal proton density and proton density-weighted images, sagittal proton-density and T2 fat-sat images, and axial proton-density fat-saturated images were acquired. Findings: Anterior and posterior cruciate ligaments are intact. Medial collateral ligament, and the l ateral collateral ligament complex are intact. Popliteus tendon is intact. There is extensive complex tearing involving the posterior horn, body, and anterior horn of the media l meniscus. No lateral meniscal tear evident. There is diffuse moderate to high-grade chondromalacia the medial compartment. There is minimal chond ral thinning in the lateral compartment. There is diffuse mild to moderate chondromalacia of the pierce llofemoral compartment. Small tricompartmental osteophytes are present. Extensor mechanism is intact. Small to small moderate joint effusion is present. There is small to mo derate Gómez's cyst as well. Impression: Extensive complex tearing of the medial meniscus, as detailed above. Tricompartmental degenerative change, as detailed above, worst in the medial compartment. Small to moderate joint effusion with small to moderate Gómez's cyst. Reviewed, dictated and finalized at location . Impression: Extensive complex tearing of the medial meniscus, as detailed above. Tricompartmental degenerative change, as detailed above, worst in the medial co mpartment. Small to moderate joint effusion with small to moderate Gómez's cyst.
== END ==
DX: M25.461 Effusion, right knee (principal); M17.11 Unilateral primary osteoarthritis, right knee; S83.231A Complex tear of medial meniscus, current injury, right knee, initial encounter; M71.21 Synovial cyst of popliteal space [Baker], right knee
CPT/HCPCS: 73721

== ENCOUNTER 2023-07-31 10:00 | Outpatient (RCR) | payer MEDICARE, SELFPAY ==
--- NOTE | 2023-06-12 10:56 | OPREHPOC ---
Outpatient Therapy Plan of Care This is a Multidisciplinary Plan of Care that may contain components documented by all disciplines (PT, OT, and ST.) PT Problem 1 PT Problem #1 Knowledge Deficit PT Goal 1 Goal Pt to be IND with issued HEP Target Visit 16 PT Problem 2 PT Problem #2 Pain PT Goal 1 Goal Pt to report knee pain no greater than 3/10 in the last week. Target Visit 16 PT Goal 2 Goal Pt to report 75% improvement in overall symptoms. Target Visit 16 PT Problem 3 PT Problem #3 Impaired Range of Motion PT Goal 1 Goal Pt to demonstrate 110 deg of active knee flexion Target Visit 16 PT Goal 2 Goal Pt to demonstrate no more than 3 deg from terminal knee extension Target Visit 16 PT Problem 4 PT Problem #4 Impaired Gait PT Goal 1 Goal Pt to demonstrate equal step and stride length during ambulation on level ground Target Visit 16 PT Goal 2 Goal Pt to improve 2 min walk distance from 310ft to 375ft. Target Visit 16 PT Problem 5 PT Problem #5 Impaired Functional Mobil PT Goal 1 Goal Pt to demonstrate a floor to stand transfers IND. Target Visit 16
--- NOTE | 2023-06-12 10:56 | PTOPEVAL1 ---
Assessment and note entered by Ray Cross, PT, DPT Evaluation Information Assessment Status Evaluation Diagnosis R TKA Onset 05/01/23 Subjective Information Pt states she had a R TKA on 05/01/23. She completed 3 weeks of home health PT before she was released. She declines any pain with normal activities. She is driving and ambulating without an AD. Her greatest complaint at this point in the tightness still. She cannot stand long enough to cook a meal. She states she is used to walking about a mile a day. Reported Pain Level Pain Score 0: Self Report Assessment PT Clinical Summary Vanessa presents to therapy today for her initial evaluation following a R TKA on 05/01/23. Today she demonstrates active knee motion from -8 to 90 deg. Passive ROM is limited by muscle guarding. She demonstrates decreased active knee strength, gait deviations, decreased gait speed, and decreased functional strength consistent with her diagnosis. Skilled therapy services are indicated to address the deficits noted above, to improve ROM, and to return to PLOF. Skilled therapy services are indicated to address the deficits noted above, to manage pain, and to improve overall functional mobility. Plan of Care Interventions Electrical Stimulation,Gait Training,Hot Pack/Cold Pack,Manual Therapy,Neuro Re-education,Patient/ Caregiver Educati,Therapeutic Activities, Therapeutic Exercise PT Services Indicated Yes Treatment Frequency and 2x/wk for 8 weeks Duration These treatments will address the objective and functional deficits as defined above. The patient will be advanced safely and appropriately in order for the patient to progress towards his/her prior level of function. Additional exercises will be introduced and as well as a comprehensive home exercise program upon discharge, if needed, ?to ensure carryover of functional gains achieved in the clinic. This treatment plan has been reviewed and agreement upon by the patient.
--- NOTE | 2023-06-16 08:14 | PCPTNOTE ---
Patient called & cancelled scheduled appointment this date due to being ill.
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
--- NOTE | 2023-07-03 17:06 | PTOPPROG ---
Assessment and note entered by Ray Cross, PT, DPT Evaluation Information Assessment Status Progress Diagnosis R TKA Onset 05/01/23 Subjective Information Pt states she feels like she is progressing well, she reports well controlled pain. Assessment PT Clinical Summary Vanessa presents to therapy today for her progress report following 5 visits of skilled therapy to treat her R TKA performed on 05/01/23. Today she demonstrates active knee motion from -1 to 100 deg and passive ROM to -1-107. She continues to demonstrates decreased active knee strength, gait deviations, decreased gait speed, and decreased functional strength but is making progress towards her therapy goals. Continuation of skilled therapy services are indicated to address the deficits noted above, to improve ROM, and to return to PLOF. Skilled therapy services are indicated to address the deficits noted above, to manage pain, and to improve overall functional mobility. Plan of Care Interventions Electrical Stimulation,Gait Training,Hot Pack/Cold Pack,Manual Therapy,Neuro Re-education,Patient/ Caregiver Educati,Therapeutic Activities, Therapeutic Exercise PT Services Indicated Yes Treatment Frequency and 2x/wk for 8 weeks, continue her POC Duration These treatments will address the objective and functional deficits as defined above. The patient will be advanced safely and appropriately in order for the patient to progress towards his/her prior level of function. Additional exercises will be introduced and as well as a comprehensive home exercise program upon discharge, if needed, ?to ensure carryover of functional gains achieved in the clinic. This treatment plan has been reviewed and agreement upon by the patient.
--- NOTE | 2023-07-14 08:16 | PCPTNOTE ---
Patient cancelled secondary to ill.
--- NOTE | 2023-07-23 09:50 | PCPTNOTE ---
Patient called to cancel due to illness.
--- NOTE | 2023-07-31 10:53 | PTOPDC ---
Assessment and note entered by Ray Cross, PT, DPT Evaluation Information Assessment Status Discharge Diagnosis R TKA Onset 05/01/23 Subjective Information Pt reports her knee is doing great, she states she has been doing more and more things around her house. She reports >90% improvement in overall symptoms. Reported Pain Level Pain Score 0: Self Report Pain Score 0: Self Report Assessment PT Clinical Summary Vanessa presents to therapy today for her progress report following 11 visits of skilled therapy to treat her R TKA performed on 05/01/23. Today she demonstrates improved gait speed, improved gait pattern, improved knee strength, and improved ROM. She has met or progressed well towards all of her therapy goals and no longer requires skilled services. She will be discharged at this time.
== END 2023-07-31 11:19 | disposition home or self-care (01) ==
LOC: ANHGOSHPT 10:00
DX: Z47.1 Aftercare following joint replacement surgery (principal); Z96.651 Presence of right artificial knee joint
CPT/HCPCS: 97016; 97110; 97116; 97140; 97161; 97530

== ENCOUNTER 2023-09-09 13:01 | Emergency (ER) | payer MEDICARE, SELFPAY ==
--- NOTE | ~2023-09-09 | XR_ITS ---
Left wrist Technique: PA, oblique, lateral, and ulnar deviation views were obtained. Clinical History: Pain Findings: There is an acute, transverse, nondisplaced fracture the distal radius. No intra-articular extension identified. Joint spaces are preserved. Soft tissues are unremarkable. Impression: Acute, transverse, nondisplaced fracture of the distal radius. Reviewed, dictated and finalized at location . Impression: Acute, transverse, nondisplaced fracture of the distal radius.
[2023-09-09 13:02] VITALS: BP 160/92; PULSE 84; RESP 18; TEMP 36.4; O2SAT 98
--- NOTE | 2023-09-09 14:05 | ED.UPPEXIN ---
HPI - Extremity Injury (Upper) General Chief Complaint: Extremity Injury, Upper Stated Complaint: FALL Time Seen by Provider: 09/09/23 13:14 Source: patient and family Mode of arrival: ambulatory Limitations: no limitations History of Present Illness HPI narrative: Ricki 83-year-old with a history of hypertension, hyperlipidemia status post right knee replacement a year ago here with a complaint of fall. Patient states that she was going up the stairs best and fell forward on outstretched hand. She stated she wanted to avoid injurying knee. No LOC , she states she hit her left eye . Other injuries: face Place: home Relieving factors: cold therapy Exacerbating factors: movement of extremity Context: fall Associated symptoms: denies other symptoms Related Data Home Medications Medication Instructions Recorded Confirmed aspirin 81 mg tablet 81 mg PO DAILY 07/30/21 09/24/21 escitalopram oxalate 10 mg tablet 10 mg PO DAILY 07/30/21 09/24/21 fluticasone propionate 50 1 spray intranasal BID 07/30/21 09/24/21 mcg/actuation nasal spray,suspension hydrochlorothiazide 25 mg tablet 12.5 mg PO DAILY 07/30/21 09/24/21 metoprolol tartrate 25 mg tablet 25 mg PO BID 07/30/21 09/24/21 omega-3 fatty acids 500 mg PO DAILY 07/30/21 09/24/21 Allergies Allergy/AdvReac Type Severity Reaction Status Date / Time levofloxacin Allergy Mild vomit Verified 09/09/23 13:10 acetaminophen Allergy Unknown Dizziness Verified 09/09/23 13:10 hydrocodone Allergy Unknown Nausea and Verified 09/09/23 13:10 Vomiting ibuprofen Allergy Hives Verified 09/09/23 13:10 NSAIDS (Non-Steroidal AdvReac Severe HIVES Verified 09/09/23 13:10 Anti-Inflamma Review of Systems Review of Systems: All systems reviewed & are unremarkable except as noted in HPI and below Constitutional: Constitutional: Reports no additional constitutional complaints Eyes: Eyes: Reports no additional eye complaints ENT: Reports system reviewed and no additional complaints, except as documented Cardiovascular: Cardiovascular: Reports no additional cardiovascular complaints Respiratory: Respiratory: Reports no additional respiratory complaints Musculoskeletal: Musculoskeletal: Reports as per HPI [facility] Past Medical History Medical History Breast cancer Hypertension Surgical History Surgical History H/O mastectomy Left mastectomy History of cataract removal with insertion of prosthetic lens History of partial hysterectomy Social History Social History Smoking status: Never smoker Alcohol intake: never Gender identity (if verbalized by the patient): Female Spiritual care concerns: No Exam Narrative: GENERAL: Well-appearing, well-nourished, and in no acute distress. HEAD: Normocephalic, atraumatic. EYES: PERRLA and EOMI. Small bruise noted on the left lateral aspect of the orbit ENT: Nares clear, no rhinorrhea or epistaxis. Mucous membranes moist. NECK: Supple. CHEST: Clear to auscultation. No respiratory distress. HEART: Regular rate and rhythm. No murmur heard. Normal peripheral pulses. ABDOMEN: Soft, nontender, nondistended, normal active bowel sounds. EXTREMITIES: Normal range of motion. No edema. Examination of the left wrist shows mild soft tissue swelling painful ROM SKIN: Warm, dry, no rash. NEURO: No focal deficits. Alert and oriented x3. PSYCH: Normal mood and affect. Course Course Emergency Course: Notified patient and her family about the x-ray findings. Advised her to follow-up with orthopedic doctor. I discussed with Dr. Valle he will follow-up in the office. Vital Signs Vital signs: Vital Signs Temperature 36.4 C 09/09/23 13:02 Pulse Rate 84 09/09/23 13:02 Respiratory Rate 18 09/09/23 13:02 Blood Pressure 160/92 H 09/09/23 13:02 Pulse Oximetry
== END 2023-09-09 14:33 | disposition home or self-care (01) ==
PROVIDERS: Emergency Provider Family Medicine
DX: S52.502A Unspecified fracture of the lower end of left radius, initial encounter for closed fracture (principal); I10 Essential (primary) hypertension; Z85.3 Personal history of malignant neoplasm of breast; W10.9XXA Fall (on) (from) unspecified stairs and steps, initial encounter
CPT/HCPCS: 29125; 73110; 99284; A4565

== ENCOUNTER 2023-12-25 19:52 | Emergency (ER) | payer MEDICARE, SELFPAY ==
--- NOTE | ~2023-12-25 | XR_ITS ---
EXAM: XR shoulder RT min 2V DATE: 12/25/2023 21:48 HISTORY: fall . COMPARISON: None available. FINDINGS: Normal mineralization. No fracture or dislocation. No lytic or blastic lesion. 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 No erosion or periosteal change. Soft tissues with in normal limits. IMPRESSION: No acute osseous finding in the right shoulder. Reviewed, dictated and finalized at location K.
--- NOTE | ~2023-12-25 | CT_ITS ---
EXAMINATION: CT cervical spine wo con DATE: 12/25/2023 21:37 INDICATION: fall TECHNIQUE: Computed tomography (CT) of the cervical spine was performed without intravenous contrast. Automated exposure control and iterative reconstruction technique were employed. The dose-length pro duct was 275.66 mGy-cm. COMPARISON: 01/29/2020. FINDINGS: Vertebral Body Alignment: Minimal 1-2 mm anterolisthesis at C3-4 and C4-5, likely on a degenerative b asis. Craniocervical and atlantoaxial alignment: Moderate degenerative change. Alignment intact. Osseous structures/fracture: No evidence of a lytic or blastic process in the visualized spine. No e vidence of acute fracture. Left C4-5 facet fusion. Cervical soft tissues: The paraspinal soft tissues planes are maintained. Degenerative changes: Degenerative changes, without severe neural foraminal or central canal narrowin g. IMPRESSION: No acute fracture or traumatic malalignment in the cervical spine. Reviewed, dictated and finalized at location K.
--- NOTE | ~2023-12-25 | XR_ITS ---
EXAM: XR knee RT 3V DATE: 12/25/2023 21:48 HISTORY: fall, abrasian to knee . COMPARISON: 10/28/2022. FINDINGS: Decreased mineralization. No fracture or dislocation. No lytic or blastic lesion. Uncompli cated appearing right total knee arthroplasty hardware. Small volume knee joint effusion. Patellar en thesopathy. No erosion or periosteal change. Soft tissues within normal limits. IMPRESSION: No acute osseous finding in the right knee. No radiographic evidence of hardware-related complication. Reviewed, dictated and finalized at location K. IMPRESSION: No acute osseous finding in the right knee. No radiographic evidenc e of hardware-related complication.
--- NOTE | ~2023-12-25 | XR_ITS ---
EXAM: XR hand RT min 3V DATE: 12/25/2023 21:48 HISTORY: fall . COMPARISON: None available. FINDINGS: Decreased mineralization. No fracture or dislocation. No lytic or blastic lesion. Scattere d degenerative changes. No erosion or periosteal change. Soft tissues within normal limits. IMPRESSION: No acute osseous finding in the right hand. Reviewed, dictated and finalized at location K.
--- NOTE | ~2023-12-25 | CT_ITS ---
EXAMINATION: CT brain wo con DATE: 12/25/2023 21:37 INDICATION: TECHNIQUE: Computed tomography (CT) of the head was performed without intravenous contrast. The mA wa s adjusted according to patient size. Iterative reconstruction technique was employed. Exam dose: 27 5.66 mGy-cm total exam DLP. COMPARISON: 07/30/2021 MR brain/brainstem To CT brain FINDINGS: There is moderate cerebral and cerebellar volume loss. No intracranial mass lesion or hemorrhage, midline shift or mass effect is detected. No subdural or epidural hematoma. Bilateral carotid siphon internal carotid artery calcifications. There is nonspecific diminished atte nuation of the cerebral white matter, likely due to chronic small vessel ischemic changes. There is mild right lateral frontal and supraorbital hematoma. No skull fracture is detected. No coup or contrecoup intracranial injury is noted. There is extensive paranasal sinus disease with nearly complete opacification of the left maxillary s inus. Moderate mucosal thickening and fluid level in the right maxillary sinus. Prominent bilateral p atchy ethmoid soft tissue thickening, prominent mucoperiosteal thickening of the left sphenoid and aleksander th frontal sinuses. The mastoid air cells are normally developed and aerated. No bone destruction of the cranial vault. IMPRESSION: Right lateral frontal/supraorbital hematoma; no skull fracture or coup or contrecoup int racranial injury Cerebral atherosclerosis and chronic small vessel ischemic changes of the cerebral white matter No acute intracranial finding Moderate cerebral and cerebellar atrophy Extensive paranasal sinus disease Reviewed, dictated and finalized at Location A. Reviewed, dictated and finalized at location J. IMPRESSION: Right lateral frontal/supraorbital hematoma; no skull fracture or coup or contrecoup intracranial injury Cerebral atherosclerosis and chronic small vessel ischemic changes of the cereb ral white matter No acute intracranial finding Moderate cerebral and cerebellar atrophy Extensive paranasal sinus disease
[2023-12-25 19:53] VITALS: BP 157/74; PULSE 86; RESP 18; TEMP 36.6; O2SAT 99
[2023-12-25 20:16] VITALS: BP 141/66; PULSE 82; RESP 16; O2SAT 95
[2023-12-25 21:16] VITALS: BP 105/95
--- NOTE | 2023-12-25 21:18 | ED.FALL ---
HPI - Fall General Chief Complaint: Fall Stated Complaint: fall, HI Time Seen by Provider: 12/25/23 20:31 History of Present Illness HPI Narrative: This is an 83-year-old female presenting to the emergency department after a ground level mechanical fall. Patient states she was walking on some uneven level terrain while she was trying to reach her mailbox. She accidentally tripped over a rock and fell onto her right side face. She is able to brace herself onto her right hand and struck her right knee on the concrete. She states she did strike her head but did not lose consciousness and does not take any blood thinner medications. She has no history of seizure disorder. Presently she is endorsing a headache without any vision changes. No nausea, vomiting, chest pain, shortness a breath, weakness, loss of continence, seizure activity. She has an injury to her right anterior knee which was recently replaced earlier this year and is complaining of some minor right-sided shoulder pain without limited range of motion. She was otherwise in her normal state of health. Related Data Home Medications Medication Instructions Recorded Confirmed aspirin 81 mg tablet 81 mg PO DAILY 07/30/21 10/17/23 escitalopram oxalate 10 mg tablet 10 mg PO DAILY 07/30/21 10/17/23 fluticasone propionate 50 1 spray intranasal BID 07/30/21 10/17/23 mcg/actuation nasal spray,suspension hydrochlorothiazide 25 mg tablet 12.5 mg PO DAILY 07/30/21 10/17/23 metoprolol tartrate 25 mg tablet 25 mg PO BID 07/30/21 10/17/23 omega-3 fatty acids 500 mg PO DAILY 07/30/21 10/17/23 atorvastatin 10 mg tablet (Lipitor) 10 mg PO DAILY 09/11/23 10/17/23 hydrochlorothiazide 12.5 mg capsule 12.5 mg PO DAILY 09/11/23 10/17/23 Allergies Allergy/AdvReac Type Severity Reaction Status Date / Time levofloxacin Allergy Mild vomit Verified 10/17/23 07:57 acetaminophen Allergy Unknown Dizziness Verified 10/17/23 07:57 hydrocodone Allergy Unknown Nausea and Verified 10/17/23 07:57 Vomiting ibuprofen Allergy Hives Verified 10/17/23 07:57 NSAIDS (Non-Steroidal AdvReac Severe HIVES Verified 10/17/23 07:57 Anti-Inflamma Review of Systems Review of Systems: As noted above and otherwise negative [facility] Past Medical History Medical History Breast cancer Hypertension Surgical History Surgical History H/O mastectomy Left mastectomy History of cataract removal with insertion of prosthetic lens History of knee surgery TKA 2022 History of partial hysterectomy Family History Family History Sibling Heart disease Social History Social History Smoking status: Never smoker Alcohol intake: current Alcohol use details: occasionally Substance use: current Substance use type: does not use Do You Feel Safe in your Home?: Yes Lack of Transportation: No Lack of Food: Never True Current Housing: I Have Housing Concerned About Future Housing: No Difficulty Paying Gas/Electric Bills: No Difficulty Paying for Meds: No Currently Unemployed: No Education: High School Diploma/GED Difficulty w/ Childcare or Family Care: No Living arrangements: with friend(s) Occupation/Education: retired Gender identity (if verbalized by the patient): Female Spiritual care concerns: No Exam Narrative: GENERAL: [Well-appearing, well-nourished, and in no acute distress.] HEAD: Normocephalic, supraorbital ridge hematoma without active bleeding or expansion. Pupils are equal reactive. No trauma to the maxillofacial structures otherwise. No malocclusion, opening and closing mouth easily EYES: [PERRLA and EOMI.] Extraocular movements are full. No ocular involvement ENT: Nares clear, no rhinorrhea or epistaxis. Mucou
[2023-12-25] MEDS: ACETAMINOPHEN 500 MG TABLET 1000 MG PO (21:53)
[2023-12-25 21:55] VITALS: BP 138/76; O2SAT 95
[2023-12-25 22:09] VITALS: O2SAT 95
[2023-12-25 22:16] VITALS: BP 138/68; PULSE 87; RESP 16; O2SAT 95
[2023-12-25] MEDS: TETANUS,DIPHTHERIA,AC PERTUSSIS ADULT (0.5 ML) BOOSTRIX IM (22:33)
== END 2023-12-25 22:49 | disposition home or self-care (01) ==
PROVIDERS: Emergency Provider Student in an Organized Health Care Education/Training Program
DX: S09.90XA Unspecified injury of head, initial encounter (principal); I10 Essential (primary) hypertension; Z85.3 Personal history of malignant neoplasm of breast; Z23 Encounter for immunization; W01.198A Fall on same level from slipping, tripping and stumbling with subsequent striking against other object, initial encounter
CPT/HCPCS: 70450; 72125; 73030; 73130; 73562; 90715; 96372; 99284; A9270